=== PATIENT | male | born 1965 | race Hispanic/Latino ===

== ENCOUNTER → 2020-04-04 | Outpatient (CLI) | payer OTHER ==
[2020-04-04 13:51] LABS: BASOPHILS % (AUTO) 0.5 % (0.0-5.0); EOSINOPHILS % (AUTO) 1.2 % (0.0-8.0); HEMATOCRIT 50.9 % (42-54); LYMPHOCYTES % (AUTO) 38.5 % (21.0-51.0); MEAN CORPUSCULAR HEMOGLOBIN 30.9 pg (27.0-33.0); MEAN CORPUSCULAR HGB CONC 33.8 g/dL (32.0-36.0); MEAN CORPUSCULAR VOLUME 91.4 fL (79-99); MONOCYTES % (AUTO) 8.7 % (3.0-13.0); NEUTROPHILS % (AUTO) 50.9 % (40.0-77.0); PLATELET COUNT (AUTO) 269 K/uL (130-400); RED BLOOD CELL COUNT(AUTO) 5.57 MIL/uL (4.50-6.20); RED CELL DISTRIBUTION WIDTH 12.5 % (11.0-15.5); WHITE BLOOD COUNT (AUTO) 9.3 K/uL (4.8-10.8)
[2020-04-04 14:09] LABS: HEMOGLOBIN A1C 7.2 % (4.0-6.0)
[2020-04-04 14:15] LABS: ALBUMIN 4.2 g/dL (3.5-5.0); BILIRUBIN,TOTAL 0.4 mg/dL (0.2-1.0); CREATININE 0.7 mg/dL (0.5-1.5); POTASSIUM 4.2 mmol/L (3.5-5.1); THYROID STIMULATING HORMONE 1.75 uIU/mL (0.36-3.74); TOTAL PROTEIN, SERUM 8.2 g/dL (6.0-8.3)
== END | disposition home or self-care (01) ==
LOC: LAB 11:54
PROVIDERS: ATTEND Internal Medicine
DX: E11.59 Type 2 diabetes mellitus with other circulatory complications (principal); I25.810 Atherosclerosis of coronary artery bypass graft(s) without angina pectoris
CPT/HCPCS: 36415; 80053; 80061; 82043; 83036; 84443; 85025

== ENCOUNTER 2020-10-24 06:09 | Day surgery (SDC) | payer OTHER ==
[~2020-10-24] VITALS: Ht 167.6 cm; Wt 99.8 kg
[~2020-10-24 06:09] MED LIST: ASPI-1197 PO; DULA3PEN SQ; GLIM4TAB36 PO; LISI-809 PO; METF-527 PO; METO100T14 PO; MULT-1333 PO; OMEP10CA5 PO; ROSU40TA21 PO; VENL75TA89 PO; ZINC220T4 PO
[2020-10-24] MEDS ORDERED: SODIUM CHLORIDE 0.9% 1000ML 1,000 ML IV ONE (06:23)
[2020-10-24] MEDS ORDERED: PROPOFOL 10 MG/ML 20ML VIAL IV ONE ×2 (06:40)
[2020-10-24 07:10] VITALS: BP 123/84
[2020-10-24 07:57] VITALS: BP 89/53
[2020-10-24 08:03] VITALS: BP 99/54
[2020-10-24 08:08] VITALS: BP 105/63
[2020-10-24 08:14] VITALS: BP 116/78
[2020-10-24 08:20] VITALS: BP 118/84
== END 2020-10-24 08:33 | disposition home or self-care (01) ==
LOC: ENDO 06:09 → DAH 06:09 → ENDO 08:33
PROVIDERS: ATTEND Internal Medicine Gastroenterology
DX: Z12.11 Encounter for screening for malignant neoplasm of colon (principal); Z20.822 Contact with and (suspected) exposure to COVID-19; K63.5 Polyp of colon; I25.10 Atherosclerotic heart disease of native coronary artery without angina pectoris; E11.9 Type 2 diabetes mellitus without complications; E66.9 Obesity, unspecified; I10 Essential (primary) hypertension; K76.0 Fatty (change of) liver, not elsewhere classified; I25.2 Old myocardial infarction; E78.5 Hyperlipidemia, unspecified; F32.9 Major depressive disorder, single episode, unspecified; K21.9 Gastro-esophageal reflux disease without esophagitis; F41.9 Anxiety disorder, unspecified; Z79.84 Long term (current) use of oral hypoglycemic drugs; Z79.899 Other long term (current) drug therapy; Z79.82 Long term (current) use of aspirin; Z86.010 Personal history of colon polyps; Z95.1 Presence of aortocoronary bypass graft; Z90.89 Acquired absence of other organs; Z87.891 Personal history of nicotine dependence; Z72.89 Other problems related to lifestyle; Z68.35 Body mass index [BMI] 35.0-35.9, adult
CPT/HCPCS: 45380; 82948 ×3; 87426; 93005; A4215 ×2; A4221; A4222; A4223; A4606; A4620; A4657; A4663; J2704 ×2; J7030

== ENCOUNTER → 2021-02-12 | Outpatient (CLI) | payer OTHER | END | disposition home or self-care (01) | LOC: RAH 11:23 | PROVIDERS: ATTEND Internal Medicine | DX: U07.1 COVID-19 (principal) | CPT/HCPCS: 71045 ==

== ENCOUNTER → 2021-05-30 | Outpatient (CLI) | payer OTHER ==
[~2021-05-30] MED LIST changes: -LISI-809 PO; +LISI5TAB21 PO
[2021-05-30 09:13] LABS: BASOPHILS % (AUTO) 0.5 % (0.0-5.0); HEMATOCRIT 47.1 % (42-54); LYMPHOCYTES % (AUTO) 38.3 % (21.0-51.0); MEAN CORPUSCULAR HEMOGLOBIN 30.8 pg (27.0-33.0); MEAN CORPUSCULAR HGB CONC 34.2 g/dL (32.0-36.0); MEAN CORPUSCULAR VOLUME 90.2 fL (79-99); MONOCYTES % (AUTO) 7.3 % (3.0-13.0); NEUTROPHILS % (AUTO) 52.6 % (40.0-77.0); PLATELET COUNT (AUTO) 234 K/uL (130-400); RED BLOOD CELL COUNT(AUTO) 5.22 MIL/uL (4.50-6.20); RED CELL DISTRIBUTION WIDTH 12.2 % (11.0-15.5)
[2021-05-30 09:22] LABS: HEMOGLOBIN A1C 7.3 % (4.0-6.0)
[2021-05-30 09:29] LABS: ALBUMIN 4.1 g/dL (3.5-5.0); BILIRUBIN,DIRECT 0.1 mg/dL (0.0-0.3); BILIRUBIN,TOTAL 0.1 mg/dL (0.2-1.0); POTASSIUM 4.1 mmol/L (3.5-5.1); TOTAL PROTEIN, SERUM 7.9 g/dL (6.0-8.3)
== END | disposition home or self-care (01) ==
LOC: LAB 08:29
PROVIDERS: ATTEND Internal Medicine
DX: E11.65 Type 2 diabetes mellitus with hyperglycemia (principal); R53.83 Other fatigue
CPT/HCPCS: 36415; 80053; 80061; 80076; 82043; 83036; 85025

== ENCOUNTER → 2021-12-13 | Outpatient (CLI) | payer OTHER ==
[2021-12-13 09:13] LABS: HEMOGLOBIN A1C 7.2 % (4.0-6.0)
[2021-12-13 09:25] LABS: B-TYPE NATRIURETIC PEPTIDE 10 pg/mL (0-100)
[2021-12-13 09:49] LABS: ALANINE AMINOTRANSFERASE 55 U/L (12-78); ALBUMIN 3.7 g/dL (3.5-5.0); ASPARTATE AMINOTRANSFERASE 26 U/L (10-37); BILIRUBIN,TOTAL 0.3 mg/dL (0.2-1.0); CARBON DIOXIDE 25 mmol/L (21-32); CHLORIDE 104 mmol/L (101-111); CHOLESTEROL 126 mg/dL (<200); CREATININE 0.8 mg/dL (0.5-1.5); GLOMERULAR FILTR. RATE CALC 106 mL/min (>60); GLUCOSE,RANDOM 172 mg/dL (70-105); HDL CHOLESTEROL 31 mg/dL (29-71); LDL DIRECT 55 mg/dL (0-99); POTASSIUM 4.1 mmol/L (3.5-5.1); SODIUM SERUM 140 mmol/L (136-145); THYROID STIMULATING HORMONE 1.22 uIU/mL (0.36-3.74); TOTAL PROTEIN, SERUM 7.2 g/dL (6.0-8.3); TRIGLYCERIDES 424 mg/dL (30-200); UREA NITROGEN, BLOOD 19 mg/dL (7-18)
[2021-12-13 09:56] LABS: CRP QUANTITATIVE < 2.00 mg/L (0.00-9.0)
[2021-12-13 10:07] LABS: ERYTHROCYTE SEDIMENTATION RATE 2 MM/HR (0-20)
== END | disposition home or self-care (01) ==
LOC: LAB 08:04
PROVIDERS: ATTEND Internal Medicine
DX: M75.101 Unspecified rotator cuff tear or rupture of right shoulder, not specified as traumatic (principal); J44.9 Chronic obstructive pulmonary disease, unspecified; E11.59 Type 2 diabetes mellitus with other circulatory complications
CPT/HCPCS: 36415; 71046; 80053; 80061; 82043; 83036; 83880; 84443; 85651; 86140; 86431

== ENCOUNTER 2022-02-14 22:01 | Inpatient (IN) | payer OTHER ==
[~2022-02-14] VITALS: Ht 167.6 cm; Wt 98.9 kg
[2022-02-14 22:19] LABS: BASOPHILS % (AUTO) 0.6 % (0.0-5.0); EOSINOPHILS % (AUTO) 1.6 % (0.0-8.0); LYMPHOCYTES % (AUTO) 44.8 % (21.0-51.0); MEAN CORPUSCULAR HEMOGLOBIN 31.1 pg (27.0-33.0); MEAN CORPUSCULAR HGB CONC 34.6 g/dL (32.0-36.0); MEAN CORPUSCULAR VOLUME 89.8 fL (79-99); MONOCYTES % (AUTO) 6.7 % (3.0-13.0); PLATELET COUNT (AUTO) 224 K/uL (130-400); RED BLOOD CELL COUNT(AUTO) 5.12 MIL/uL (4.50-6.20); RED CELL DISTRIBUTION WIDTH 12.1 % (11.0-15.5); WHITE BLOOD COUNT (AUTO) 9.5 K/uL (4.8-10.8)
[2022-02-14 22:22] LABS: APPEARANCE,URINE CLEAR (CLEAR); BILIRUBIN,URINE NEGATIVE (NEGATIVE); COLOR,URINE YELLOW (YELLOW); GLUCOSE, URINE (UA) >=1000 mg/dL (NEGATIVE); KETONES,URINE NEGATIVE (NEGATIVE); LEUKOCYTE ESTERASE ,URINE NEGATIVE (NEGATIVE); NITRATE,URINE NEGATIVE (NEGATIVE); OCCULT BLOOD,URINE NEGATIVE (NEGATIVE); PROTEIN,URINE NEGATIVE (NEGATIVE); UROBILINOGEN,URINE 0.2 mg/dL (0.2-1.0)
[2022-02-14 22:29] LABS: BACTERIA,URINE None Seen /HPF (None Seen); INR 0.98 (0.85-1.15); PROTHROMBIN TIME 10.7 SEC (9.6-11.6); RBC,URINE None Seen /HPF (0-1); SQUAMOUS EPITHELIAL CELL,UR Rare /HPF (0-2); WBC,URINE None Seen /HPF (0-1); YEAST,URINE BUDDING None Seen /HPF (None Seen)
[2022-02-14 22:39] LABS: ALBUMIN 3.6 g/dL (3.5-5.0); POTASSIUM 3.9 mmol/L (3.5-5.1); TOTAL PROTEIN, SERUM 7.2 g/dL (6.0-8.3)
[2022-02-15 02:05] VITALS: BP 141/63
[2022-02-15] MEDS ORDERED: ROSU10TA28 PO (02:32)
[2022-02-15] MEDS ORDERED: OMEP20CA12 PO (02:33)
[2022-02-15] MEDS ORDERED: CO-Q-10 PO (02:34)
[2022-02-15] MEDS ORDERED: FIBER PO (02:35)
[2022-02-15] MEDS ORDERED: MAG-37 PO (02:37)
[2022-02-15] MEDS ORDERED: TUMS (02:37)
[2022-02-15] MEDS ORDERED: DEXTROSE 50%-WATER 50 ML DISP.SYRIN IV PRN (04:00)
[2022-02-15 04:11] LABS: BASOPHILS % (AUTO) 0.3 % (0.0-5.0); HEMATOCRIT 43.8 % (42-54); LYMPHOCYTES % (AUTO) 51.3 % (21.0-51.0); MEAN CORPUSCULAR HEMOGLOBIN 30.8 pg (27.0-33.0); MEAN CORPUSCULAR HGB CONC 33.8 g/dL (32.0-36.0); MEAN CORPUSCULAR VOLUME 91.3 fL (79-99); MONOCYTES % (AUTO) 8.2 % (3.0-13.0); NEUTROPHILS % (AUTO) 37.9 % (40.0-77.0); PLATELET COUNT (AUTO) 200 K/uL (130-400); RED CELL DISTRIBUTION WIDTH 12.2 % (11.0-15.5)
[2022-02-15 04:39] LABS: ALBUMIN 3.3 g/dL (3.5-5.0); CREATININE 0.9 mg/dL (0.5-1.5); POTASSIUM 4.1 mmol/L (3.5-5.1); TOTAL PROTEIN, SERUM 6.6 g/dL (6.0-8.3)
[2022-02-15] MEDS: INSULIN R PO SS1 SQ SCH ×4 (06:33→21:00)
[2022-02-15 07:14] VITALS: BP 116/83
[2022-02-15] MEDS: ASPIRIN 81 MG EC TAB PO SCH (08:25)
[2022-02-15] MEDS: ENOXAPARIN SODIUM 100 MG/1 ML SQ SCH ×2 (08:30→21:25)
[2022-02-15] MEDS ORDERED: ENOXAPARIN SODIUM 1 MG/KG SQ SCH (09:00)
[2022-02-15] MEDS ORDERED: ACETAMINOPHEN 325 MG TAB PO PRN (10:00)
[2022-02-15 10:37] LABS: CHOLESTEROL 183 mg/dL (<200); HDL CHOLESTEROL 34 mg/dL (29-71); LDL DIRECT 71 mg/dL (0-99); TRIGLYCERIDES 452 mg/dL (30-200)
[2022-02-15] MEDS ORDERED: TSP PO PRN (11:30)
[2022-02-15] MEDS ORDERED: MAG/ALUM/SIMETH 30 ML UDCUP PO PRN (11:30)
[2022-02-15 12:00] VITALS: BP 114/72
[2022-02-15 16:00] VITALS: BP 140/88
[2022-02-15 19:38] VITALS: BP 135/92
[2022-02-15] MEDS: CO Q10 100 MG PO SCH (21:00)
[2022-02-15] MEDS: ATORVASTATIN 20 MG TABLET PO SCH (21:25)
[2022-02-15] MEDS: METOPROLOL TARTRATE 50 MG TAB PO SCH (21:25)
[2022-02-15 23:47] VITALS: BP 125/78
[2022-02-16 03:38] VITALS: BP 114/73
[2022-02-16] MEDS: INSULIN R PO SS1 SQ SCH ×4 (06:39→20:58)
[2022-02-16 07:00] VITALS: BP 135/94
[2022-02-16] MEDS: VENLAFAXINE HCL XR 37.5 MG CAP PO SCH (08:57)
[2022-02-16] MEDS: PANTOPRAZOLE 40 MG TAB DR PO SCH (08:57)
[2022-02-16] MEDS: METOPROLOL TARTRATE 50 MG TAB PO SCH ×2 (08:57→20:47)
[2022-02-16] MEDS: ASPIRIN 81MG CHEW TAB PO SCH (08:57)
[2022-02-16] MEDS: GLIMEPIRIDE 2 MG TABLET PO SCH (08:58)
[2022-02-16] MEDS: ENOXAPARIN SODIUM 100 MG/1 ML SQ SCH ×2 (08:59→20:47)
[2022-02-16] MEDS: **HM**(Zinc Sulfate (Zinc) 50 MG PO SCH (09:00)
[2022-02-16] MEDS ORDERED: LISINOPRIL 5 MG TABLET PO SCH (09:00)
[2022-02-16] MEDS: ASPIRIN 81 MG EC TAB PO SCH (09:00)
[2022-02-16] MEDS ORDERED: NITROGLYCERIN 1GM OINT 1 INCH/1GM TD SCH (10:53)
[2022-02-16 16:00] VITALS: BP 142/78
[2022-02-16] MEDS ORDERED: CLOPIDOGREL 75MG TAB PO SCH (16:30)
[2022-02-16] MEDS ORDERED: IOHEXOL 350 MG/ML 100ML INFUS..BTL IV ONE (16:42)
[2022-02-16 19:03] VITALS: BP_SYST 104; BP_DIAS 64; BP_DIAS 68
[2022-02-16] MEDS: ATORVASTATIN 20 MG TABLET PO SCH (20:46)
[2022-02-16] MEDS: CLOPIDOGREL 75MG TAB PO SCH (20:46)
[2022-02-16] MEDS: CO Q10 100 MG PO SCH (20:46)
[2022-02-16] MEDS: NITROGLYCERIN 1GM OINT 1 INCH/1GM TD SCH (20:48)
[2022-02-17] VITALS (9 sets, daily range): BP systolic 87–143; BP diastolic 46–88
[2022-02-17] MEDS: NITROGLYCERIN 1GM OINT 1 INCH/1GM TD SCH ×3 (04:25→22:40)
[2022-02-17] MEDS: INSULIN R PO SS1 SQ SCH ×4 (06:35→22:38)
[2022-02-17] MEDS: **HM**(Zinc Sulfate (Zinc) 50 MG PO SCH (09:00)
[2022-02-17] MEDS: GLIMEPIRIDE 2 MG TABLET PO SCH (09:00)
[2022-02-17] MEDS: PANTOPRAZOLE 40 MG TAB DR PO SCH (09:11)
[2022-02-17] MEDS: CLOPIDOGREL 75MG TAB PO SCH (09:11)
[2022-02-17] MEDS: VENLAFAXINE HCL XR 37.5 MG CAP PO SCH (09:11)
[2022-02-17] MEDS: ASPIRIN 81MG CHEW TAB PO SCH (09:11)
[2022-02-17] MEDS: ENOXAPARIN SODIUM 100 MG/1 ML SQ SCH ×2 (09:12→21:00)
[2022-02-17] MEDS: ACETAMINOPHEN 325 MG TAB PO PRN (09:13)
[2022-02-17] MEDS ORDERED: METOPROLOL SUCCINATE 50 MG TAB.SR.24H PO SCH (21:00)
[2022-02-17] MEDS: ATORVASTATIN 20 MG TABLET PO SCH (22:35)
[2022-02-17] MEDS: CO Q10 100 MG PO SCH (22:39)
[2022-02-18] VITALS (11 sets, daily range): BP systolic 106–175; BP diastolic 68–97
[2022-02-18] MEDS: NITROGLYCERIN 1GM OINT 1 INCH/1GM TD SCH ×3 (03:33→22:01)
[2022-02-18 04:27] LABS: MEAN CORPUSCULAR HEMOGLOBIN 31.2 pg (27.0-33.0); MEAN CORPUSCULAR HGB CONC 34.8 g/dL (32.0-36.0); MEAN CORPUSCULAR VOLUME 89.7 fL (79-99); RED BLOOD CELL COUNT(AUTO) 4.68 MIL/uL (4.50-6.20); WHITE BLOOD COUNT (AUTO) 7.9 K/uL (4.8-10.8)
[2022-02-18 04:35] LABS: PROTHROMBIN TIME 10.9 SEC (9.6-11.6)
[2022-02-18 04:36] LABS: PARTIAL THROMBOPLASTIN TIME 26.3 SEC (26.3-35.5)
[2022-02-18 04:44] LABS: CREATININE 0.8 mg/dL (0.5-1.5); POTASSIUM 3.7 mmol/L (3.5-5.1)
[2022-02-18] MEDS ORDERED: BIVALIRUDIN 250 MG/VIAL IV ONE ×2 (08:38→12:10)
[2022-02-18] MEDS ORDERED: HEPARIN 10,000 UNIT/10ML (1,000 UNIT/ML) VIAL ONE ×3 (08:38→12:45)
[2022-02-18] MEDS ORDERED: LIDOCAINE HCL 1% 20 ML VIAL ONE ×2 (08:38→10:59)
[2022-02-18] MEDS ORDERED: IOHEXOL 350 MG/ML 100ML INFUS..BTL IV ONE ×3 (08:39→11:40)
[2022-02-18] MEDS ORDERED: MIDAZOLAM HCL 1 MG/ML 2ML VIAL ONE ×4 (08:39→14:06)
[2022-02-18] MEDS ORDERED: FENTANYL CITRATE PF 50 MCG/1 ML 2ML VIAL ONE ×4 (08:39→14:07)
[2022-02-18] MEDS: ENOXAPARIN SODIUM 100 MG/1 ML SQ SCH ×2 (09:00→20:22)
[2022-02-18] MEDS: **HM**(Zinc Sulfate (Zinc) 50 MG PO SCH (09:00)
[2022-02-18] MEDS: GLIMEPIRIDE 2 MG TABLET PO SCH (09:00)
[2022-02-18] MEDS: VENLAFAXINE HCL XR 37.5 MG CAP PO SCH (09:03)
[2022-02-18] MEDS: CLOPIDOGREL 75MG TAB PO SCH (09:04)
[2022-02-18] MEDS: ASPIRIN 81MG CHEW TAB PO SCH (09:04)
[2022-02-18] MEDS: PANTOPRAZOLE 40 MG TAB DR PO SCH (09:04)
[2022-02-18] MEDS: INSULIN R PO SS1 SQ SCH ×4 (09:07→20:21)
[2022-02-18] MEDS ORDERED: SODIUM BICARB 50MEQ 50ML VIAL 50 ML ONE (10:59)
[2022-02-18] MEDS ORDERED: NITROGLYCERIN 50MG VIAL ONE (11:00)
[2022-02-18] MEDS ORDERED: IOHEXOL-350 75 ML VIAL IV ONE (12:15)
[2022-02-18] MEDS ORDERED: 0.9%NACL 1000ML 1,000 ML IV SCH (16:00)
[2022-02-18] MEDS: ATORVASTATIN 20 MG TABLET PO SCH (20:22)
[2022-02-18] MEDS: ACETAMINOPHEN 325 MG TAB PO PRN (20:32)
[2022-02-18] MEDS: CO Q10 100 MG PO SCH (20:33)
[2022-02-18] MEDS ORDERED: TRAMADOL HCL 50 MG TABLET PO ONE (23:00)
[2022-02-18] MEDS ORDERED: TRAMADOL HCL 50 MG TABLET ONE (23:04)
[2022-02-19 03:25] VITALS: BP_SYST 123; BP_SYST 137; BP_DIAS 65; BP_DIAS 84
[2022-02-19] MEDS: NITROGLYCERIN 1GM OINT 1 INCH/1GM TD SCH ×3 (03:41→20:51)
[2022-02-19 03:44] LABS: HEMATOCRIT 43.7 % (42-54); MEAN CORPUSCULAR HEMOGLOBIN 30.4 pg (27.0-33.0); MEAN CORPUSCULAR HGB CONC 33.9 g/dL (32.0-36.0); MEAN CORPUSCULAR VOLUME 89.7 fL (79-99); RED BLOOD CELL COUNT(AUTO) 4.87 MIL/uL (4.50-6.20); WHITE BLOOD COUNT (AUTO) 8.5 K/uL (4.8-10.8)
[2022-02-19 03:58] LABS: CREATININE 0.9 mg/dL (0.5-1.5); POTASSIUM 3.9 mmol/L (3.5-5.1)
[2022-02-19] MEDS: INSULIN R PO SS1 SQ SCH ×4 (05:57→20:57)
[2022-02-19] MEDS ORDERED: MAGNESIUM CITRATE 296 ML SOLUTION PO SCH (07:00)
[2022-02-19] MEDS: TRAMADOL HCL 50 MG TABLET PO SCH ×3 (07:00→18:35)
[2022-02-19 07:08] VITALS: BP 131/89
[2022-02-19] MEDS: VENLAFAXINE HCL XR 37.5 MG CAP PO SCH (08:09)
[2022-02-19] MEDS: CLOPIDOGREL 75MG TAB PO SCH (08:09)
[2022-02-19] MEDS: ASPIRIN 81MG CHEW TAB PO SCH (08:09)
[2022-02-19] MEDS: PANTOPRAZOLE 40 MG TAB DR PO SCH (08:09)
[2022-02-19] MEDS: ENOXAPARIN SODIUM 100 MG/1 ML SQ SCH ×2 (08:10→20:52)
[2022-02-19] MEDS: GLIMEPIRIDE 2 MG TABLET PO SCH (08:13)
[2022-02-19] MEDS: FENOFIBRATE NANOCRYSTALLIZED 145 MG TAB PO SCH (08:13)
[2022-02-19] MEDS: **HM**(Zinc Sulfate (Zinc) 50 MG PO SCH (08:19)
[2022-02-19] MEDS ORDERED: CLOPIDOGREL 75MG TAB PO SCH (09:00)
[2022-02-19 11:15] VITALS: BP 154/91
[2022-02-19 15:05] VITALS: BP 122/89
[2022-02-19] MEDS: ACETAMINOPHEN 325 MG TAB PO PRN (18:34)
[2022-02-19 18:50] VITALS: BP 139/92
[2022-02-19] MEDS: CO Q10 100 MG PO SCH (20:51)
[2022-02-19] MEDS: ATORVASTATIN 20 MG TABLET PO SCH (20:52)
[2022-02-19 23:09] VITALS: BP 147/98
[2022-02-20] MEDS: TRAMADOL HCL 50 MG TABLET PO SCH ×3 (00:32→11:40)
[2022-02-20 03:25] VITALS: BP 129/80
[2022-02-20] MEDS: NITROGLYCERIN 1GM OINT 1 INCH/1GM TD SCH ×2 (04:11→11:38)
[2022-02-20 06:33] VITALS: BP 154/94
[2022-02-20] MEDS: INSULIN R PO SS1 SQ SCH ×2 (06:34→11:39)
[2022-02-20] MEDS: GLIMEPIRIDE 2 MG TABLET PO SCH (08:11)
[2022-02-20] MEDS: PANTOPRAZOLE 40 MG TAB DR PO SCH (08:11)
[2022-02-20] MEDS: FENOFIBRATE NANOCRYSTALLIZED 145 MG TAB PO SCH (08:11)
[2022-02-20] MEDS: CLOPIDOGREL 75MG TAB PO SCH (08:12)
[2022-02-20] MEDS: **HM**(Zinc Sulfate (Zinc) 50 MG PO SCH (08:12)
[2022-02-20] MEDS: VENLAFAXINE HCL XR 37.5 MG CAP PO SCH (08:12)
[2022-02-20] MEDS: ASPIRIN 81MG CHEW TAB PO SCH (08:12)
[2022-02-20] MEDS: ENOXAPARIN SODIUM 100 MG/1 ML SQ SCH (08:13)
[2022-02-20] MEDS ORDERED: RANOLAZINE 500 MG TAB.SR.12H PO SCH (09:00)
[2022-02-20] MEDS: METOPROLOL TARTRATE 50 MG TAB PO SCH ×2 (09:00→09:24)
[2022-02-20 09:25] VITALS: BP 133/97
[2022-02-20] MEDS ORDERED: CLOP75TA14 PO (10:35)
[2022-02-20] MEDS ORDERED: NITR0.4T50 SL (10:37)
[2022-02-20] MEDS ORDERED: RANO500T2 PO (10:38)
[2022-02-20 11:01] VITALS: BP 143/93
== END 2022-02-20 12:58 | disposition home or self-care (01) | DRG 250 ==
LOC: EDH 22:01 → EDHIP 02-15 → 2DH 02-15 01:27
PROVIDERS: ADMIT Internal Medicine; ATTEND Internal Medicine
PROC: 4A023N7 Measurement of Cardiac Sampling and Pressure, Left Heart, Percutaneous Approach (ICD-10-PCS; principal; 2022-02-18)
PROC: 02703ZZ Dilation of Coronary Artery, One Artery, Percutaneous Approach (ICD-10-PCS; 2022-02-18)
PROC: B2111ZZ Fluoroscopy of Multiple Coronary Arteries using Low Osmolar Contrast (ICD-10-PCS; 2022-02-18)
PROC: B2181ZZ Fluoroscopy of Left Internal Mammary Bypass Graft using Low Osmolar Contrast (ICD-10-PCS; 2022-02-18)
PROC: B2121ZZ Fluoroscopy of Single Coronary Artery Bypass Graft using Low Osmolar Contrast (ICD-10-PCS; 2022-02-18)
PROC: B2151ZZ Fluoroscopy of Left Heart using Low Osmolar Contrast (ICD-10-PCS; 2022-02-18)
DX: I25.110 Atherosclerotic heart disease of native coronary artery with unstable angina pectoris (principal); I21.4 Non-ST elevation (NSTEMI) myocardial infarction; E78.5 Hyperlipidemia, unspecified; E11.65 Type 2 diabetes mellitus with hyperglycemia; I12.9 Hypertensive chronic kidney disease with stage 1 through stage 4 chronic kidney disease, or unspecified chronic kidney disease; E11.22 Type 2 diabetes mellitus with diabetic chronic kidney disease; N18.9 Chronic kidney disease, unspecified; Z86.16 Personal history of COVID-19; Z98.61 Coronary angioplasty status; Z79.82 Long term (current) use of aspirin; Z79.4 Long term (current) use of insulin; Z79.02 Long term (current) use of antithrombotics/antiplatelets; Z95.1 Presence of aortocoronary bypass graft; I25.2 Old myocardial infarction
CPT/HCPCS: 36415; 71045; 71270; 80048; 80053; 80061; 81001; 82948; 83880; 84484; 85025; 85027; 85610; 85730; 92924; 93005; 93306; 93356; 93459; 93799; 99156; 99157; C1760; C1769; C1887; C1894; G0378; J0583; J1644; J1650; J1815; J2250; J3010; J3490; J7030; Q9967

== ENCOUNTER → 2022-02-25 | Outpatient (CLI) | payer OTHER ==
[~2022-02-25] MED LIST changes: +CLOP75TA14 PO; +CO-Q-10 PO; -DULA3PEN SQ; +FIBER PO; +MAG-37 PO; -MULT-1333 PO; +NITR0.4T50 SL; -OMEP10CA5 PO; +OMEP20CA12 PO; +RANO500T2 PO; +ROSU10TA28 PO; -ROSU40TA21 PO; +TUMS
[2022-02-25 16:14] LABS: BASOPHILS % (AUTO) 0.4 % (0.0-5.0); EOSINOPHILS % (AUTO) 1.3 % (0.0-8.0); HEMATOCRIT 45.4 % (42-54); LYMPHOCYTES % (AUTO) 35.6 % (21.0-51.0); MEAN CORPUSCULAR HEMOGLOBIN 31.3 pg (27.0-33.0); MEAN CORPUSCULAR HGB CONC 34.4 g/dL (32.0-36.0); MONOCYTES % (AUTO) 8.8 % (3.0-13.0); NEUTROPHILS % (AUTO) 53.6 % (40.0-77.0); PLATELET COUNT (AUTO) 239 K/uL (130-400); RED BLOOD CELL COUNT(AUTO) 4.99 MIL/uL (4.50-6.20); RED CELL DISTRIBUTION WIDTH 12.5 % (11.0-15.5); WHITE BLOOD COUNT (AUTO) 7.6 K/uL (4.8-10.8)
[2022-02-25 16:30] LABS: CREATININE 0.9 mg/dL (0.5-1.5); POTASSIUM 4.4 mmol/L (3.5-5.1); TOTAL PROTEIN, SERUM 7.9 g/dL (6.0-8.3)
== END | disposition home or self-care (01) ==
LOC: LAB 15:41
PROVIDERS: ATTEND Internal Medicine
DX: I25.810 Atherosclerosis of coronary artery bypass graft(s) without angina pectoris (principal); I10 Essential (primary) hypertension
CPT/HCPCS: 36415; 80053; 84484; 85025

== ENCOUNTER → 2022-06-04 | Outpatient (CLI) | payer BC, OTHER ==
[~2022-06-04] MED LIST changes: +CLOP-31 PO; -CLOP75TA14 PO
[2022-06-04 10:26] LABS: BASOPHILS % (AUTO) 0.6 % (0.0-5.0); EOSINOPHILS % (AUTO) 1.6 % (0.0-8.0); HEMATOCRIT 48.2 % (42-54); LYMPHOCYTES % (AUTO) 40.2 % (21.0-51.0); MEAN CORPUSCULAR HEMOGLOBIN 30.7 pg (27.0-33.0); MEAN CORPUSCULAR HGB CONC 34.2 g/dL (32.0-36.0); MEAN CORPUSCULAR VOLUME 89.8 fL (79-99); MONOCYTES % (AUTO) 6.8 % (3.0-13.0); NEUTROPHILS % (AUTO) 50.5 % (40.0-77.0); PLATELET COUNT (AUTO) 220 K/uL (130-400); RED BLOOD CELL COUNT(AUTO) 5.37 MIL/uL (4.50-6.20); RED CELL DISTRIBUTION WIDTH 12.7 % (11.0-15.5); WHITE BLOOD COUNT (AUTO) 6.9 K/uL (4.8-10.8)
[2022-06-04 10:37] LABS: HEMOGLOBIN A1C 6.6 % (4.0-6.0)
[2022-06-04 11:01] LABS: ALBUMIN 4.1 g/dL (3.5-5.0); BILIRUBIN,DIRECT 0.1 mg/dL (0.0-0.3); CREATININE 0.9 mg/dL (0.5-1.5); POTASSIUM 4.2 mmol/L (3.5-5.1); THYROID STIMULATING HORMONE 1.28 uIU/mL (0.36-3.74); TOTAL PROTEIN, SERUM 7.9 g/dL (6.0-8.3); URIC ACID 8.4 mg/dL (2.6-7.2)
== END | disposition home or self-care (01) ==
LOC: LAB 09:15
PROVIDERS: ATTEND Student in an Organized Health Care Education/Training Program
DX: Z12.5 Encounter for screening for malignant neoplasm of prostate (principal); I25.810 Atherosclerosis of coronary artery bypass graft(s) without angina pectoris; I10 Essential (primary) hypertension; E11.59 Type 2 diabetes mellitus with other circulatory complications; E78.2 Mixed hyperlipidemia; E78.5 Hyperlipidemia, unspecified; R53.83 Other fatigue
CPT/HCPCS: 36415; 80053; 80061; 80076; 82043; 83036; 84153; 84443; 84550; 85025

== ENCOUNTER → 2022-12-17 | Outpatient (CLI) | payer OTHER ==
[~2022-12-17] MED LIST changes: -CO-Q-10 PO; +DICL75TA5 PO; +MULT-1203 PO; +RANO10003 PO; -RANO500T2 PO; -TUMS
[2022-12-17 09:42] LABS: BASOPHILS % (AUTO) 0.5 % (0.0-5.0); EOSINOPHILS % (AUTO) 1.8 % (0.0-8.0); HEMATOCRIT 44.5 % (42-54); LYMPHOCYTES % (AUTO) 34.7 % (21.0-51.0); MEAN CORPUSCULAR HEMOGLOBIN 31.6 pg (27.0-33.0); MEAN CORPUSCULAR HGB CONC 33.7 g/dL (32.0-36.0); MEAN CORPUSCULAR VOLUME 93.9 fL (79-99); MONOCYTES % (AUTO) 8.3 % (3.0-13.0); NEUTROPHILS % (AUTO) 54.4 % (40.0-77.0); PLATELET COUNT (AUTO) 199 K/uL (130-400); RED BLOOD CELL COUNT(AUTO) 4.74 MIL/uL (4.50-6.20); RED CELL DISTRIBUTION WIDTH 12.6 % (11.0-15.5); WHITE BLOOD COUNT (AUTO) 6.1 K/uL (4.8-10.8)
[2022-12-17 09:52] LABS: HEMOGLOBIN A1C 7.4 % (4.0-6.0)
[2022-12-17 10:15] LABS: ALBUMIN 3.7 g/dL (3.5-5.0); BILIRUBIN,DIRECT 0.1 mg/dL (0.0-0.3); POTASSIUM 4.4 mmol/L (3.5-5.1); THYROID STIMULATING HORMONE 2.18 uIU/mL (0.36-3.74); TOTAL PROTEIN, SERUM 7.4 g/dL (6.0-8.3); URIC ACID 7.7 mg/dL (2.6-7.2)
== END | disposition home or self-care (01) ==
LOC: LAB 08:51
PROVIDERS: ATTEND Student in an Organized Health Care Education/Training Program
DX: Z00.01 Encounter for general adult medical examination with abnormal findings (principal); E11.59 Type 2 diabetes mellitus with other circulatory complications; M47.22 Other spondylosis with radiculopathy, cervical region; E78.5 Hyperlipidemia, unspecified; I10 Essential (primary) hypertension; R53.83 Other fatigue; Z12.5 Encounter for screening for malignant neoplasm of prostate; Z95.1 Presence of aortocoronary bypass graft; I25.10 Atherosclerotic heart disease of native coronary artery without angina pectoris
CPT/HCPCS: 36415; 72050; 80053; 80061; 82248; 82306; 82570; 83036; 84153; 84443; 84550; 85025

== ENCOUNTER → 2023-07-17 | Outpatient (CLI) | payer OTHER ==
[2023-07-17 09:09] LABS: HEMATOCRIT 47.6 % (42-54); MEAN CORPUSCULAR HEMOGLOBIN 29.7 pg (27.0-33.0); MEAN CORPUSCULAR HGB CONC 32.4 g/dL (32.0-36.0); MEAN CORPUSCULAR VOLUME 91.7 fL (79-99); RED BLOOD CELL COUNT(AUTO) 5.19 MIL/uL (4.50-6.20); RED CELL DISTRIBUTION WIDTH 13.5 % (11.0-15.5); WHITE BLOOD COUNT (AUTO) 6.8 K/uL (4.8-10.8)
[2023-07-17 09:17] LABS: APPEARANCE,URINE CLEAR (CLEAR); BILIRUBIN,URINE NEGATIVE (NEGATIVE); COLOR,URINE LIGHT-YELLOW (YELLOW); GLUCOSE, URINE (UA) >=1000 mg/dL (NEGATIVE); KETONES,URINE NEGATIVE (NEGATIVE); LEUKOCYTE ESTERASE ,URINE NEGATIVE Leu/uL (NEGATIVE); NITRATE,URINE NEGATIVE (NEGATIVE); OCCULT BLOOD,URINE NEGATIVE (NEGATIVE); PROTEIN,URINE NEGATIVE (NEGATIVE); UROBILINOGEN,URINE 0.2 mg/dL (0.2-1.0)
[2023-07-17 09:17] LABS: HEMOGLOBIN A1C 6.6 % (4.0-6.0)
[2023-07-17 09:18] LABS: ADD UA MICROSCOPIC YES
[2023-07-17 09:27] LABS: RBC,URINE 0-1 /HPF (0-1)
[2023-07-17 09:52] LABS: ALBUMIN 3.8 g/dL (3.5-5.0); BILIRUBIN,TOTAL 0.3 mg/dL (0.2-1.0); CREATININE 1.3 mg/dL (0.5-1.5); POTASSIUM 4.1 mmol/L (3.5-5.1); TOTAL PROTEIN, SERUM 7.7 g/dL (6.0-8.3)
== END | disposition home or self-care (01) ==
LOC: LAB 08:39
PROVIDERS: ATTEND Internal Medicine Endocrinology, Diabetes & Metabolism
DX: E11.65 Type 2 diabetes mellitus with hyperglycemia (principal); E55.9 Vitamin D deficiency, unspecified; D51.9 Vitamin B12 deficiency anemia, unspecified; E78.2 Mixed hyperlipidemia
CPT/HCPCS: 36415; 80053; 80061; 81001; 82043; 82306; 82570; 82607; 83036; 85027